=== PATIENT | female | born 1975 | race Caucasian/White ===

== ENCOUNTER → 2023-10-30 06:32 | Day surgery (SDC) | payer BC, SELFPAY ==
[2023-10-30 10:55] LABS: Glucose - Point of Care 98 mg/dl (70-99)
== END ==
LOC: GI 06:32
PROVIDERS: ATTENDING PHYSICIAN Internal Medicine
DX: Z12.11 Encounter for screening for malignant neoplasm of colon (principal); D12.7 Benign neoplasm of rectosigmoid junction; K62.1 Rectal polyp
CPT/HCPCS: 45385; 45380; 88305; 82962

== ENCOUNTER → 2023-12-27 17:24 | Outpatient (REF) | payer BC, SELFPAY ==
[2023-12-27 17:51] LABS: % Basophils 0.8 % (0-2); % Eosinophils 0.8 % (0-6); % Immature Granulocytes 0.2 % (0-0.5); % Monocytes 4.9 % (1.7-9.3); % Neutrophils 72.3 % (42.2-75.2); Absolute Basophils 0.1 10^3/uL (0-0.2); Absolute Eosinophils 0.1 10^3/uL (0-0.7); Absolute Monocytes 0.5 10^3/uL (0.1-0.6); Absolute Neutrophils 6.7 10^3/uL (1.4-6.5); Hematocrit 42.9 % (37.0-47.0); Hemoglobin 15.1 g/dL (12.0-16.0); Mean Corp Hgb Conc. 35.2 g/dL (33.0-37.0); Mean Corpuscular Hgb 29.7 pg (27.0-31.0); Mean Corpuscular Volume 84.3 fL (81.0-99.0); Mean Platelet Volume 9.3 fL (7.4-10.4); Nucleated Red Blood Cells % 0 %; Platelet Count 293 10^3/uL (130-400); Red Blood Cell Count 5.09 10^6/uL (4.20-5.40); Red Cell Dist. Width 12.2 % (11.5-14.5); White Blood Cell Count 9.3 10^3/uL (4.8-10.8)
[2023-12-27 18:07] LABS: ALT (SGPT) 15 U/L (0-35); AST (SGOT) 19 U/L (14-36); Albumin 4.7 g/dl (3.5-5.0); Alkaline Phosphatase 67 U/L (38-126); Blood Urea Nitrogen 8 mg/dl (7-17); Calcium 9.6 mg/dl (8.4-10.2); Carbon Dioxide 22 mmol/L (22-30); Chloride 106 mmol/L (98-107); Glucose 95 mg/dl (70-99); HDL Cholesterol 56 mg/dl; Iron 164 ug/dl (37-170); LDL Cholesterol, Calculated 146 mg/dl; Potassium 4.4 mmol/L (3.5-5.1); Sodium 139 mmol/L (135-145); Total Bilirubin 0.6 mg/dl (0.2-1.3); Total Cholesterol 227 mg/dl (50-199); Total Protein 7.6 g/dl (6.3-8.2); Triglyceride 125 mg/dl (10-149); Very Low Density Lipoprotein 25 mg/dl (0-30); eGFR > 60.00
[2023-12-27 18:17] LABS: Percent Saturation 42 % (20-50); Total Iron Binding Capacity 382 ug/dl (265-497)
[2023-12-27 18:23] LABS: Vitamin D, 25-OH*** 33.3 ng/mL (30-80)
[2023-12-27 18:41] LABS: Ferritin 58.2 ng/ml (6.24-137)
[2023-12-27 19:12] LABS: Folate 11.5 ng/ml (2.76-20); Vitamin B12 793 pg/ml (239-931)
[2023-12-28 12:05] LABS: Glycohemoglobin (HgbA1c) 5.6 % (4.0-5.6)
== END ==
LOC: REG 17:24
PROVIDERS: ATTENDING PHYSICIAN Clinical Nurse Specialist Family Health; FAMILY PHYSICIAN Internal Medicine
DX: Z00.00 Encounter for general adult medical examination without abnormal findings (principal)
CPT/HCPCS: 36415; 80053; 80061; 82306; 82607; 82728; 82746; 83036; 83540; 83550; 85025

== ENCOUNTER → 2024-02-21 12:32 | Outpatient (REF) | payer BC, SELFPAY | LOC: RAD 12:32 | PROVIDERS: ATTENDING PHYSICIAN Internal Medicine | DX: M54.12 Radiculopathy, cervical region (principal) | CPT/HCPCS: 72040 ==

== ENCOUNTER → 2024-05-01 19:33 | Outpatient (REF) | payer BC, SELFPAY | LOC: MRI 3T 19:33 | PROVIDERS: ATTENDING PHYSICIAN Internal Medicine | DX: M75.102 Unspecified rotator cuff tear or rupture of left shoulder, not specified as traumatic (principal); M54.12 Radiculopathy, cervical region | CPT/HCPCS: 72141; 73221 ==

== ENCOUNTER 2024-10-31 16:37 | Day surgery (SDC) | payer BC, SELFPAY ==
[2024-10-31 12:30] VITALS: BP 146/99
--- NOTE | 2024-10-31 13:10 | ED.GENMED ---
History of Present Illness
General
Chief Complaint: Abdominal Pain
Time Seen by Provider: 10/31/24 12:57
History of Present Illness
History of Present Illness:
49-year-old female with history of zsw-gdyqasn-njsqbudhy diabetes and GERD presents the emergency department for evaluation of intense upper abdominal pain associated with intractable vomiting for the past 3 days. Has been unable to tolerate
nxtt-wyt-tugfufz meds due to vomiting. Prior abdominal surgeries include x 1. She does note that she is on a GLP-1 for diabetes however has been on this for several years without issues and even reduced her dosage 1 week ago. No
hematemesis or melena.
Past History
Past History
ED Past Medical History: GERD and Other (Migraines); Negative Asthma, HTN, Hypercholesterolemia or NIDDM
ED Past Surgical History: (X1), Gynecological (11 breast surgery for reconstruction) and Other (Right anterior Thoracic outlet syndrome)
Social History
Tobacco: Non-smoker
Alcohol: None
Personal: Single
Living: with family
Employment: Employed
Review of Systems
Review of Systems
Allergies reviewed?: Yes
All Other Systems: ROS reviewed and negative except as documented in HPI and ROS
Phy Exam
Physical Exam
Physical Exam:
GEN: Ill-appearing, in visible pain, diaphoretic
HEENT: Oral mucosa moist, no scleral icterus
Cardiac: Regular rate
Lung: No respiratory distress, no tachypnea
Abdomen: Soft, significant epigastric and right upper quadrant tenderness
MSK: No gross deformity or injuries
Skin: Good color, no pallor or jaundice, no rashes
Neuro: AO x3, moves all extremities freely
Psych: Calm, cooperative
Course
Orders/Labs/Results
Orders:
Orders
10/31/24 13:09
HYDROmorphone [Dilaudid] 0.5 mg IV NOW STA
Ondansetron Injectable [Zofran] 4 mg IV NOW STA
US Abdomen Complete/Upper Urgent
Comment:
Reason For Exam: epigastric pain
10/31/24 13:10
Lactated Ringers [Lr] 1,000 ml IV BOLUS
10/31/24 13:17
Complete Blood Count/With Diff Urgent
Comprehensive Metabolic Panel Urgent
Lipase Urgent
10/31/24 14:54
Famotidine [Pepcid] 20 mg IV NOW STA
Sucralfate Suspension [Carafate Suspension] 1 gm PO NOW STA
10/31/24 15:40
HYDROmorphone [Dilaudid] 0.5 mg IV NOW STA
10/31/24 15:42
Admit/Transfer Patient As Directed
Co-Sign Provider:
Level of Care: Post Proc/Surg Recovery
Assign to:: Medical/Surgical
Physician / Group: Pellini/Gen surg
Diagnosis: Cholecystitis
Reason for Overnight Stay: Standard of Care
PRN Pain Medication Management As Directed
May give lesser potent ordered pain med per pt: Yes
preference::
Protocol:: Medication orders for pain may be administered in a
manner that supports deferring to patient preference
when the pt is:
- Requesting an ordered lesser potent pain medication.
Least to most potent pain medications are defined
as: acetaminophen < NSAID < tramadol < opioids
(morphine, oxycodone, hydromorphone).
- Requesting a lesser dose of the same medication IF
ORDERED.
- Requesting a less intrusive route of administration
if both routes are prescribed by the provider (PO <
IV).
10/31/24 15:43
Code Status As Directed
Resuscitation Status: Full Code
LevoFLOXacin 500 MG/100 ML [Levaquin] 500 mg in 100 ml IV NOW
MetroNIDAZOLE 500 MG/100 ML [Flagyl 500 mg] 100 ml IV NOW
10/31/24 15:50
ECG [Electrocardiogram (*1)] Routine
Reason for Study: QTc Monitoring
Prochlorperazine [Compazine] 5 mg IV NOW STA
11/01/24 06:00
ECG [Electrocardiogram (*1)] IN AM
Reason for Study: QTc Monitoring
11/01/24 08:00
Pantoprazole [Protonix] 40 mg PO DAILY
Abnormal Lab Results
10/31/24
13:17
Chloride 110 H mmol/L
(98-107)
Glucose 103 H mg/dl
(70-99)
10/31/24 13:17
10/31/24 13:17
Vital Signs
Initial and Last Documented VS:
Initial Vital Signs
Temp Pulse Resp BP Pulse Ox
97.6 F 86 16 146/99 99
10/31/24 12:30 10/31/24 12:30 10/31/24 12:30 10/31/24 12:30 10/31/24 12:30
Last Documented Vital Signs
Temp Pulse Resp BP Pulse Ox
97.6 F 86 16 146/99 99
10/31/24 12:30 10/31/24 12:30 10/31/24 12:30 10/31/24 12:30 10/31/24 12:30
MDM/Problems Addressed
MDM/Problems Addressed:
49-year-old female presenting with upper abdominal pain and vomiting workup reveals signs of acute cholecystitis on ultrasound. Case was reviewed with general surgery who will admit the patient to their service for operative intervention tomorrow.
Will administer IV antibiotics, Levaquin and Flagyl chosen due to allergy profile
*Critical Care Note
Total Time (30-74mins, 75-104mins- exclusive of procedures): Not Applicable
Update Note
Update Note:
10/31/2024 1454 PM: Patient reassessed complaining improved but still present pain. Reporting indigestion/reflux symptoms. Awaiting ultrasound report. Will give famotidine and Carafate
ED Attending Note
-
Portions of this chart may have been created with voice recognition software.� Occasional wrong word or��sound alike� substitutions may have occurred due to the inherent limitations of voice recognition software.
Discharge Plan
Departure
Patient Disposition: Admit
Date of Disposition: 10/31/24
Time of Disposition: 15:43
Admit to: Med/Surg
Presentation/result/management discussed w/ accepting MD/DO: Gen Surg
Discharge Problem:
Acute cholecystitis
Prescriptions:
No Action
alprazolam 1 MG tablet
1 mg PO PRN PRN (Reason: migrane)
esomeprazole magnesium [Nexium] 40 MG capsule,delayed release(DR/EC)
40 mg PO DAILY
Patient Comments:
pt vomited ~ 30min after taking
bwkbojf-qswmxnwvnaeqi-ptswjpwf 1 TABLET tablet
1 tab PO PRN PRN (Reason: migrane)
cetirizine 10 mg Tablet
10 mg PO DAILY
famotidine 20 mg Tablet
20 mg PO DAILYPRN PRN (Reason: stomache pain)
mometasone [Nasonex] 50 mcg/actuation [place],Non-Aerosol
1 spray INTRANASAL DAILY
norethindrone ac-eth estradiol [06/08 ()] 1-20 mg-mcg tablet
1 tab PO DAILY
Patient Comments:
taking for hormone replacement, not bc
gabapentin 100 mg capsule
200 mg PO TIDPRN PRN (Reason: migraine)
cyclobenzaprine 5 mg tablet
5 mg PO Q8HPRN PRN (Reason: shoulder pain)
Mounjaro 10 mg/0.5 mL pen injector
1 mg SC WEEKLY
Referrals:
Kellie Radford MD [Family Provider, Internal Medicine]
Interventions
Interventions:
*Risk Screen - Suicide Last Done: 10/31/24 12:30
*General Assessment Last Done: 10/31/24 12:30
*Neglect/Abuse Screening Last Done: 10/31/24 12:30
GI-Chixdu-Xyrauwlwia Assessment Last Done: 10/31/24 12:49
Discharge Date and Time
Print Language: GREENLANDIC
[2024-10-31] MEDS: LR 1000 IV (13:17)
[2024-10-31] MEDS: ZOFRAN 4 MG IV ×2 (13:18→22:32)
[2024-10-31] MEDS: DILAUDID 0.5 MG IV ×3 (13:18→22:32)
[2024-10-31 13:35] LABS: % Basophils 0.5 % (0-2); % Eosinophils 1.1 % (0-6); % Immature Granulocytes 0.3 % (0-0.5); % Lymphocytes 23.1 % (20.5-51.1); % Monocytes 5.9 % (1.7-9.3); % Neutrophils 69.1 % (42.2-75.2); Absolute Eosinophils 0.1 10^3/uL (0-0.7); Absolute Lymphocytes 1.7 10^3/uL (1.2-3.4); Absolute Monocytes 0.4 10^3/uL (0.1-0.6); Absolute Neutrophils 5.1 10^3/uL (1.4-6.5); Hematocrit 41.3 % (37.0-47.0); Hemoglobin 14.5 g/dL (12.0-16.0); Mean Corp Hgb Conc. 35.1 g/dL (33.0-37.0); Mean Corpuscular Hgb 28.8 pg (27.0-31.0); Mean Corpuscular Volume 82.1 fL (81.0-99.0); Mean Platelet Volume 9.4 fL (7.4-10.4); Nucleated Red Blood Cells % 0 %; Platelet Count 236 10^3/uL (130-400); Red Blood Cell Count 5.03 10^6/uL (4.20-5.40); Red Cell Dist. Width 12.3 % (11.5-14.5); White Blood Cell Count 7.4 10^3/uL (4.8-10.8)
[2024-10-31 14:05] LABS: ALT (SGPT) 21 U/L (0-35); AST (SGOT) 19 U/L (14-36); Albumin 4.6 g/dl (3.5-5.0); Alkaline Phosphatase 53 U/L (38-126); Blood Urea Nitrogen 9 mg/dl (7-17); Calcium 10.1 mg/dl (8.4-10.2); Carbon Dioxide 23 mmol/L (22-30); Chloride 110 mmol/L (98-107); Glucose 103 mg/dl (70-99); Lipase 139 U/L (23-300); Potassium 4.6 mmol/L (3.5-5.1); Sodium 142 mmol/L (135-145); Total Bilirubin 0.9 mg/dl (0.2-1.3); Total Protein 7.5 g/dl (6.3-8.2); eGFR > 60.00
[2024-10-31] MEDS: PEPCID 20 MG IV (15:05)
[2024-10-31] MEDS: CARAFATE SUSPENSION 1 GM PO (15:05)
--- NOTE | 2024-10-31 15:51 | HPS.HSE ---
Addendum entered and electronically signed by Fredy Prakash MD 11/01/24 07:41:
Patient seen and examined this a.m. Agree with documented history and physical.
HPI 49-year-old female with history of DM, intentional weight loss, GERD and prior history of gastric ulcers presenting with progressive intermittent epigastric pain radiating to the back with nausea and anorexia. This past Saturday her acute
episode resumed and has been rather persistent since exacerbated by any oral intake.
Ultrasound imaging confirms gallstones, gallbladder wall 3 mm with some enhancement, positive sonographic Clemens sign. No biliary ductal dilation.
Past abdominal surgical history only notable for .
AFVSS NAD AAO x 3
ABD: Soft, nondistended, tenderness to palpation epigastrium and to the right of midline. No rebound rigidity or guarding.
Laboratory testing reviewed and unremarkable including normal LFTs and lipase.
Assessment/plan: Reviewed with patient history and workup to date as outlined above which is consistent with symptomatic cholelithiasis/probable acute on chronic calculus cholecystitis.
In the setting of the degree of recurrent symptoms she has been experiencing we discussed the indications for cholecystectomy at this hospitalization which she is in agreement with.
Laparoscopic cholecystectomy was reviewed in detail including operative technique utilizing diagrams and alternative management options. The potential benefits and risks of the procedure were reviewed in detail, including but not limited to
infectious or wound healing complications, bleeding, bile leak, injury to biliary tree, iatrogenic injury to surrounding viscera. Reviewed the typical postoperative recovery.
Any of the patient's concerns or questions were fully addressed and informed consent was obtained.
Patient on OR schedule for today continue supportive care pending OR availability
Original Note:
Family Physician
-
Family Physician: Kellie Radford
Chief Complaint
-
Epigastric pain/nausea
History of Present Illness
Ms Gray is a 49 yo female with a h/o DM on Mounjaro, planned weight loss >30lbs over the past year and who presents through the ED with 4 days of epigastric pain radiating into her back and towards the right abdomen with nausea. She
notes that over the past year or so, she has had intermittent epigastric discomfort which although severe usually was short in duration and relieved by staying NPO for a period of time and taking Pepcid in addition to her daily nexium. She began
having this pain on Saturday very early in the morning after having a steak sandwich the previous night. She noted nausea and chills with low grade elevation in temperature but no true fever. She has been vomiting whenever she tries to eat so has
been mostly NPO since that time. These symptoms have persisted and she has been staying mostly in bed over the past few days due to pain and nausea and general fatigue. On exam, she has epigastric tenderness into the RUQ.
Medical History
Past Medical History
Past Medical History: Reports GERD, NIDDM and Other (right thoracic outlet syndrome, migraines)
Past Surgical History: Reports and Other (breast reconstruction x11, right anterior thoracic outlet decompression)
Social History
Tobacco: Non-smoker
Alcohol: None
Employment: Employed
Family History
Family History: Not pertinent
Allergies / Home Medications
Allergies reflects when Allergies were last updated in [facility].
Home Medications with original date entered in [facility]
Allergy/Medication List:
Patient Allergies
Allergy/AdvReac Type Severity Reaction Status Date / Time
fentanyl Allergy Severe angioedema Verified 10/31/24 16:24
Cephalosporins Allergy Unknown Verified 10/31/24 12:36
latex Allergy Rash Verified 10/31/24 12:36
meperidine (From Demerol) Allergy Unknown Verified 10/31/24 12:36
nitrofurantoin (From Allergy Unknown Verified 10/31/24 12:36
Macrobid)
Penicillins Allergy Unknown Verified 10/31/24 12:36
Sulfa (Sulfonamide Allergy Unknown Verified 10/31/24 12:36
Antibiotics)
sumatriptan (From Imitrex) Allergy Unknown Verified 10/31/24 12:36
Tetanus Vaccines and Toxoid Allergy Unknown Verified 10/31/24 12:36
�Medication �Instructions �Recorded �Confirmed �Type
alprazolam 1 mg tablet 1 mg PO PRN PRN migrane 08/05/20 10/31/24 History
wjcsesw-gdtzztmtbeykh-ieclvmem 250 1 tab PO PRN PRN migrane 08/05/20 10/31/24 History
mg-250 mg-65 mg tablet
esomeprazole magnesium 40 mg 40 mg PO DAILY 08/05/20 10/31/24 History
capsule,delayed release (Nexium)
cetirizine 10 mg tablet 10 mg PO DAILY 10/31/24 10/31/24 History
cyclobenzaprine 5 mg tablet 5 mg PO Q8HPRN PRN shoulder pain 10/31/24 10/31/24 History
famotidine 20 mg tablet 20 mg PO DAILYPRN PRN stomache pain 10/31/24 10/31/24 History
gabapentin 100 mg capsule 200 mg PO TIDPRN PRN migraine 10/31/24 10/31/24 History
mometasone 50 mcg/actuation nasal 1 spray intranasal DAILY 10/31/24 10/31/24 History
spray
norethindrone acetate 1 mg-ethinyl 1 tab PO DAILY 10/31/24 10/31/24 History
estradiol 20 mcg tablet (Junel)
tirzepatide 10 mg/0.5 mL 1 mg SC WEEKLY 10/31/24 10/31/24 History
subcutaneous pen injector
(Mounjaro)
Review of Systems
-
History Source: Patient
A 12 point ROS was completed and negative except as noted: Yes
Physical Exam
Vital Signs
Vital Signs
Temp Pulse Resp BP Pulse Ox
97.6 F 86 16 146/99 99
10/31/24 12:30 10/31/24 12:30 10/31/24 12:30 10/31/24 12:30 10/31/24 12:30
Physical Exam
General: Well Developed and Well Nourished; No Comfortable
HEENT: NormoCephalic and Moist mucous membranes
GI: Soft, Non Distended and Tender (epigastrium into RUQ)
Skin: Warm and Dry
Neuro: Awake, Alert and AO x 3
Psych: Calm
Laboratory Results
-
10/31/24 13:17
10/31/24 13:17
Laboratory Results
Total Bilirubin 0.9 mg/dl (0.2-1.3) 10/31/24 13:17
AST 19 U/L (14-36) 10/31/24 13:17
ALT 21 U/L (0-35) 10/31/24 13:17
Alkaline Phosphatase 53 U/L (38-126) 10/31/24 13:17
Lipase 139 U/L (23-300) 10/31/24 13:17
Data Reviewed
-
Ultrasound: Image Personally Visualized and interpreted, Report Reviewed by me, Discussed with Physician, Discussed with Patient and Discussed with Family
Lab Data: Labs Reviewed by me, Discussed with Physician and Discussed with Patient
Old Records: Reviewed
Impression/Plan
-
IMPRESSION:
49 yo female with h/o DM on mounjaro (LD one week ago) with prior likely with prior episodes of biliary colic over the past year who presents with epigastric pain radiating into her back and RUQ with associated tenderness on exam x4 days
with associated n/v. Symptoms not relieved with PPI, H2 or carafate. US imaging with positive clemens's sign as well as cholelithiasis with gallbladder wall thickening raising suspicion for acute cholecystitis.
PLAN:
Will admit overnight and start IV abx with levaquin/flagyl
NPO after MN for OR for lap jaspreet
Ok for clears if tolerated this evening
Analgesics/Antiemetics prn
Follow ECGs given use of multiple QT prolonging meds
IVF with NSS at 80ml/hr
Follow accuchecks, SSI if needed
SCDs for VTE ppx
[2024-10-31] MEDS: COMPAZINE 5 MG IV (16:03)
[2024-10-31] MEDS: FLAGYL 500 MG 100 IV (16:04)
[2024-10-31 17:01] LABS: HCG, Serum Qualitative Screen Negative
[2024-10-31 18:08] LABS: Glucose - Point of Care 76 mg/dl (70-99)
[2024-10-31 18:09] VITALS: BP 130/69
[2024-10-31] MEDS: NSS 1000 IV (18:14)
[2024-10-31] MEDS: LEVAQUIN 100 IV (20:23)
[2024-10-31 22:35] LABS: Glucose - Point of Care 115 mg/dl (70-99)
[2024-10-31 23:03] VITALS: BP 139/86
[2024-11-01] VITALS (11 sets, daily range): BP systolic 121–166; BP diastolic 62–100
[2024-11-01] MEDS: FLAGYL 500 MG 100 IV (00:09)
[2024-11-01] MEDS: TORADOL 10 MG IV (00:18)
[2024-11-01] MEDS: PROTONIX 40 MG PO (00:56)
[2024-11-01] MEDS: DILAUDID 0.5 MG IV ×2 (01:33→11:19)
[2024-11-01 05:57] LABS: Glucose - Point of Care 80 mg/dl (70-99)
[2024-11-01] MEDS: DEXTROSE 50% SYRINGE 12.5 GRAMS IV (06:13)
[2024-11-01 06:34] LABS: Glucose - Point of Care 164 mg/dl (70-99)
--- NOTE | 2024-11-01 06:35 | PTCARENOTE ---
Patient's blood glucose 80 at 0600 check. Patient stated she had a slight head ache and normally drops quickly when she is at this level. Roxana Thomson, [facility] notified of patient's concerns. One dose of dextrose ordered and administered.
After 15 minute check, bloody glucose at 164 and patient stated her headache had resolved . Patient prepped for surgery this morning.
--- NOTE | 2024-11-01 07:41 | W.SUR.PREOP ---
Pre-Operative Surgical Note
-
I have examined this patient prior to the performance of the scheduled procedure.
The patient's condition is unchanged from the time of the current History and
Physical and the patient is able to undergo the scheduled procedure.
[2024-11-01] MEDS: FLAGYL 500 MG IV (08:21)
--- NOTE | 2024-11-01 09:10 | W.IMMPOSTOP ---
Addendum entered and electronically signed by Fredy Prakash MD 11/01/24 09:47:
#[id number]
Original Note:
Surgical Immed Post Op Note
-
Primary Surgeon: Fredy Prakash MD
Assisting Surgeon: None
Pre-op Diagnosis: Symptomatic cholelithiasis/chronic calculus cholecystitis
Post-op Diagnosis: Symptomatic cholelithiasis/chronic calculus cholecystitis
Procedure Performed: Laparoscopic cholecystectomy
Anesthesia Type: GETA +0.25% Marcaine
Specimen / Cultures: gallbladder
Estimated Blood Loss: 6 mL
Complications: None immediate
Operative Findings: Physiologically distended gallbladder with chronic omental adhesions to gallbladder. Gallstones. Probable acute biliary colic with chronic calculus cholecystitis. Cystic duct and artery individually controlled with clips.
Gallbladder removed of liver intact and extracted at epigastric trocar site.
[2024-11-01] MEDS: ZOFRAN 4 MG IV ×2 (09:25→18:23)
[2024-11-01 09:33] LABS: Glucose - Point of Care 116 mg/dl (70-99)
[2024-11-01] MEDS: COMPAZINE 5 MG IV ×2 (09:37→20:17)
[2024-11-01] MEDS: PEPCID 20 MG IV (11:16)
[2024-11-01] MEDS: REGLAN 10 MG IV (11:17)
[2024-11-01] MEDS: PROTONIX PO (11:18)
--- NOTE | 2024-11-01 11:32 | CM ---
CM following re: discharge planning.
Reviewed pt's chart, met with pt.
Pt is a 49 year old female, admitted with SDC status and primary dx of POD#0 Laparoscopic cholecystectomy.
Pt reports she lives with mother and a brother 2SH, 2 steps to enter. 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
PCP: Kellie Radford
Pharmacy: [facility]
D/C plan: home with anticipated no needs.
CM will follow with discharge plan updates as needed.
[2024-11-01] MEDS: NSS 1000 IV (11:46)
[2024-11-01 11:50] LABS: Glucose - Point of Care 146 mg/dl (70-99)
[2024-11-01 13:38] LABS: Glucose - Point of Care 125 mg/dl (70-99)
[2024-11-01] MEDS: XANAX 1 MG PO (15:53)
[2024-11-01 16:59] LABS: Glucose - Point of Care 134 mg/dl (70-99)
[2024-11-01] MEDS: FIORICET 1 TAB PO (18:22)
[2024-11-01] MEDS: NORVASC 5 MG PO (20:17)
[2024-11-01] MEDS: DILAUDID 1 MG IV ×2 (20:24→23:27)
[2024-11-02 00:25] LABS: Glucose - Point of Care 127 mg/dl (70-99)
[2024-11-02] MEDS: NSS 1000 IV (00:40)
[2024-11-02] MEDS: TORADOL 10 MG IV ×2 (00:44→09:09)
[2024-11-02] MEDS: DILAUDID 1 MG IV (03:26)
[2024-11-02 06:31] LABS: Glucose - Point of Care 115 mg/dl (70-99)
[2024-11-02 08:15] VITALS: BP 127/86
[2024-11-02] MEDS: ZYRTEC 10 MG PO (09:12)
[2024-11-02] MEDS: PROTONIX 40 MG PO (09:12)
[2024-11-02] MEDS: TYLENOL 650 MG PO (09:13)
--- NOTE | 2024-11-02 09:26 | W.PN.GS2 ---
Today's Communication / Plan
-
Dispo planning
Assessment / Plan
-
This is a 49-year-old female status post laparoscopic cholecystectomy for chronic cholecystitis. Doing well, expected postoperative course.
Will DC home today.
Time Spent
Total Time Spent with Patient (in minutes): 20
Subjective Data
-
Date of Service: November 02, 2024
Interval Events:
No acute events overnight. Slept well. Pain Controlled. Denies Nausea/Vomiting. Tolerating diet.
Objective Data
-
Intake and Output
11/01/24 11/02/24 11/03/24
06:59 06:59 06:59
Intake Total 360 / 360 2620 / 2620
Balance 360 / 360 2620 / 2620
Intake:
Oral fluids 360 / 360 720 / 720
IV fluids (Total) 1900 / 1900
normsool 300 / 300
Other:
Number of approximated MODERATE 4
amounts of urine
Number of approximated LARGE 3
amounts of urine
Vital Signs
Temp Pulse Resp BP Pulse Ox
99.1 F 83 16 127/86 97
11/02/24 08:15 11/02/24 08:15 11/02/24 08:15 11/02/24 08:15 11/02/24 08:15
Lab Results
10/31/24 13:17
10/31/24 13:17
Calcium 10.1 mg/dl (8.4-10.2) 10/31/24 13:17
Total Bilirubin 0.9 mg/dl (0.2-1.3) 10/31/24 13:17
AST 19 U/L (14-36) 10/31/24 13:17
ALT 21 U/L (0-35) 10/31/24 13:17
Alkaline Phosphatase 53 U/L (38-126) 10/31/24 13:17
Total Protein 7.5 g/dl (6.3-8.2) 10/31/24 13:17
Albumin 4.6 g/dl (3.5-5.0) 10/31/24 13:17
Physical Exam
-
GENERAL/NEURO: Awake, Alert, no distress
CHEST: Unlabored breathing on RA
ABDOMEN: Soft, Non-Tender, Non-Distended, incisions clean dry and intact.
Patient has a [place] catheter: No
Patient has a central line: No
[2024-11-02] MEDS: NSS IV (09:47)
--- NOTE | 2024-11-02 10:37 | CM ---
CM reviewed chart and noted dc order. Bedside meeting with pt, no dc needs noted, observed indep in room, cousin to transport.
Plan: DC home, no needs
== END 2024-11-02 11:58 | disposition home or self-care (01) ==
LOC: SDS 16:37
PROVIDERS: Physician Assistant; ATTENDING PHYSICIAN Surgery; EMERGENCY PHYSICIAN Emergency Medicine; FAMILY PHYSICIAN Internal Medicine
DX: K80.10 Calculus of gallbladder with chronic cholecystitis without obstruction (principal)
CPT/HCPCS: 47562; 88304; 76700; 80053; 82962; 83690; 84703; 85025; 93005; 96361; 96365; 96375; 96376; 99284

== ENCOUNTER 2024-11-27 19:54 | Emergency (ER) | payer BC, SELFPAY ==
[2024-11-27 20:00] VITALS: BP 144/107
--- NOTE | 2024-11-27 20:20 | ED.GENMED ---
History of Present Illness
General
Chief Complaint: Abdominal Pain
Source: patient
Exam Limitations: none
Time Seen by Provider: 11/27/24 20:02
History of Present Illness
History of Present Illness:
See MDM
Past History
Past History
ED Past Medical History: GERD and Other (Migraines); Negative Asthma, HTN, Hypercholesterolemia or NIDDM
ED Past Surgical History: (X1), Gynecological (11 breast surgery for reconstruction) and Other (Right anterior Thoracic outlet syndrome)
Social History
Tobacco: Non-smoker
Alcohol: None
Personal: Single
Living: with family
Employment: Employed
Phy Exam
Physical Exam
Physical Exam:
See MDM
Course
Orders/Labs/Results
Orders:
Orders
11/27/24 20:19
CT Abd/pel W Iv And Oral Contr Urgent
Comment:
Reason For Exam: recent GB surgery, upper abd pain
0.9% Sodium Chloride 1000 ml [Nss] 1,000 ml IV BOLUS
HYDROmorphone [Dilaudid] 0.5 mg IV NOW STA
Iohexol [Omnipaque] See Protocol PO NOW STA
Prochlorperazine [Compazine] 10 mg IV NOW STA
11/27/24 20:26
Complete Blood Count/With Diff Urgent
Comprehensive Metabolic Panel Urgent
HCG, Serum Qualitative Screen Urgent
Comment: ADD ON
Lipase Urgent
PTT Urgent
Prothrombin Time Urgent
11/27/24 20:59
MR Mrcp Without Urgent
Comment:
Reason For Exam: RUQ pain, recent cholecystectomy
Recent pill cam endoscopy?: No
11/27/24 22:16
Add On- LAB Urgent
Tests Added?: HCG qual
11/27/24 20:26
11/27/24 20:26
Vital Signs
Initial and Last Documented VS:
Initial Vital Signs
Temp Pulse Resp BP Pulse Ox
97.6 F 79 20 144/107 99
11/27/24 20:00 11/27/24 20:00 11/27/24 20:00 11/27/24 20:00 11/27/24 20:00
Last Documented Vital Signs
Temp Pulse Resp BP Pulse Ox
97.6 F 73 16 127/75 98
11/27/24 20:00 11/27/24 21:00 11/27/24 21:00 11/27/24 21:00 11/27/24 21:00
MDM/Problems Addressed
Differential Diagnosis Includes:
HPI and MDM Narrative:
49-year-old female presenting for evaluation of upper abdominal pain. This has been ongoing for the past several weeks ever since she had laparoscopic cholecystectomy. Patient has been dealing with intermittent pain that is worse with any sort of
food intake or water intake. She states it feels different from prior history of gastric ulcers. She denies any rectal bleeding. She does have a history of kidney stones as well but states this also feels different. Zofran is not helping the
nausea. Patient also complained of intermittent fevers
On exam, patient has tenderness to the epigastric region overlying one of the incision sites. However, the incision sites are clean and intact. No palpable hernia. Will obtain CT will give any evidence of biliary leak or free air or pancreatitis.
Will give dose of Compazine since Zofran not helping and will give dose of Dilaudid
Physical exam
General: Mildly uncomfortable
HEENT: protecting airway. Dry mucous membranes
Neck: appears supple
CV: No evidence of cyanosis
Resp: No accessory muscle use
Abd: Non-distended. No palpable hernia. Epigastric tenderness. No rebound
Extremities: No deformities
Neuro: alert
Psych: Normal affect
Skin: Intact
Problems Addressed including Acute and Chronic Conditions affecting care:
1. Postsurgical abdominal pain
Acuity: acute
Prognosis: stable
Details: Will obtain CT looking for evidence of biliary leak or pancreatitis or free air
Updates
9 PM patient in contact with her surgical team who is recommending MRCP. Case discussed with MRI who are still here. Will obtain stat MRI
MRCP negative. Will obtain CT
CT negative. Patient is feeling better after IV fluids and pain medicine. Will restart Carafate
Differential Diagnosis (but not limited to): Biliary leak, biliary abscess, free air, peptic ulcer disease, pancreatitis
Testing considered: Abdominal ultrasound
Drug therapy (if applicable): OTC meds, please see d/c instruction regarding Rx drugs
Amount and/or Complexity of Data Reviewed
Clinical info obtained from: Patient
External data reviewed: Recent laparoscopic cholecystectomy few weeks ago
Labs I independently reviewed (but not limited to): White blood cell count normal
Radiology: The CT scan was personally and independently reviewed. In addition, official CT report reviewed.
Pulse Ox: not hypoxic
EKG independently reviewed: N/A
Dealer Sales Manager: N/A
Critical Care: N/A
Risk of Complication:
Social Determinants of health: Good social support
Discussed with other providers: N/A
Escalation of Care includes Admit/Obs: After being observed in the Emergency Department, pt stable for discharge.
Occasional wrong word or 'sound a like' substitutions may have occurred due to the inherent limitations of voice recognition software. Read the chart carefully and recognize, using context, where substitutions have occurred.
*Pulse Oximetry
SaO2: 99
Oxygen Mode of Delivery: Room air
Patient hypoxic: no
*Critical Care Note
Total Time (30-74mins, 75-104mins- exclusive of procedures): Not Applicable
ED Attending Note
-
Portions of this chart may have been created with voice recognition software.� Occasional wrong word or��sound alike� substitutions may have occurred due to the inherent limitations of voice recognition software.
Discharge Plan
Departure
Patient Disposition: Home (Routine Discharge)
Date of Disposition: 11/28/24
Time of Disposition: 00:23
Patient with high blood pressure during this ER visit?: No
Discharge Problem:
Abdominal pain
Prescriptions:
New
ondansetron HCl 4 mg tablet
4 mg PO Q8H PRN (Reason: nausea and vomiting) Qty: 20 0RF
sucralfate [Carafate] 1 gram tablet
1 g PO TID 28 Days Qty: 84 0RF
No Action
alprazolam 1 MG tablet
1 mg PO PRN PRN (Reason: migrane)
esomeprazole magnesium [Nexium] 40 MG capsule,delayed release(DR/EC)
40 mg PO DAILY
Patient Comments:
pt vomited ~ 30min after taking
gdtrcyy-rkzlcjuoimgqg-caaydgot 1 TABLET tablet
1 tab PO PRN PRN (Reason: migrane)
cetirizine 10 mg Tablet
10 mg PO DAILY
famotidine 20 mg Tablet
20 mg PO DAILYPRN PRN (Reason: stomache pain)
mometasone 50 mcg/actuation [place],Non-Aerosol
1 spray INTRANASAL DAILY
norethindrone ac-eth estradiol [06/08 ()] 1-20 mg-mcg tablet
1 tab PO DAILY
Patient Comments:
taking for hormone replacement, not bc
gabapentin 100 mg capsule
200 mg PO TIDPRN PRN (Reason: migraine)
cyclobenzaprine 5 mg tablet
5 mg PO Q8HPRN PRN (Reason: shoulder pain)
Mounjaro 10 mg/0.5 mL pen injector
1 mg SC WEEKLY
acetaminophen [Tylenol Extra Strength] 500 mg tablet
1,000 mg PO Q6HPRN PRN (Reason: mild pain) Qty: 1 0RF
polyethylene glycol 3350 [Miralax] 17 gram/dose powder
4 g PO DAILY PRN (Reason: Constipation) Qty: 119 0RF
Rx Instructions:
start a laxative such as MIRALAX on day 2 after surgery if no bowel movement yet as long as no nausea/vomiting and passing gas
oxycodone 5 mg tablet
5 mg PO Q4HPRN PRN (Reason: breakthrough/severe pain) Qty: 7 0RF
ketorolac 10 mg tablet
10 mg PO Q8H 4 Days Qty: 12 0RF
Referrals:
Kellie Radford MD [Family Provider, Internal Medicine]
Activity Restrictions/Additional Instructions:
Please return for worsening symptoms
Interventions
Interventions:
*Risk Screen - Suicide Last Done: 11/27/24 20:46
*General Assessment Last Done: 11/27/24 20:46
*Neglect/Abuse Screening Last Done: 11/27/24 20:46
*ED- Fall Risk Assessment Last Done: 11/27/24 20:46
*ED COVID-19 Vaccine History Last Done: 11/27/24 20:46
YC-Jjosyi-Guatyvxecy Assessment Last Done: 11/27/24 20:51
Discharge Date and Time
Print Language: DOMINICAN
[2024-11-27 20:34] LABS: Hematocrit 42.5 % (37.0-47.0); Hemoglobin 14.8 g/dL (12.0-16.0); Mean Corp Hgb Conc. 34.8 g/dL (33.0-37.0); Mean Corpuscular Volume 83.5 fL (81.0-99.0); Nucleated Red Blood Cells % 0 %; Platelet Count 297 10^3/uL (130-400); Red Cell Dist. Width 13.2 % (11.5-14.5)
[2024-11-27] MEDS: COMPAZINE 10 MG IV (20:35)
[2024-11-27] MEDS: DILAUDID 0.5 MG IV (20:36)
[2024-11-27] MEDS: NSS 1000 IV (20:36)
[2024-11-27 20:42] LABS: INR 1.08; PT 14.3 Sec (11.4-14.6)
[2024-11-27 20:43] LABS: APTT 29.9 Sec (23.4-35.0)
[2024-11-27 20:46] VITALS: BMI 25.3
[2024-11-27 20:50] VITALS: BP 127/68
--- NOTE | 2024-11-27 20:53 | EDRN ---
Dr. Marte in room w/pt at this time. Pt has not started drinking for CT as of yet, awaiting to see if pt will get CT, talking w/Dr. Marte at this time.
[2024-11-27 21:00] VITALS: BP 127/75
--- NOTE | 2024-11-27 21:03 | EDRN ---
CT oral contrast on hold until pt returns from MRI per Dr. Marte.
[2024-11-27 21:04] LABS: ALT (SGPT) 23 U/L (0-35); AST (SGOT) 20 U/L (14-36); Albumin 4.6 g/dl (3.5-5.0); Alkaline Phosphatase 87 U/L (38-126); Blood Urea Nitrogen 8 mg/dl (7-17); Calcium 9.6 mg/dl (8.4-10.2); Carbon Dioxide 27 mmol/L (22-30); Chloride 106 mmol/L (98-107); Estimated Creatinine Clearance 87 ml/min; Glucose 89 mg/dl (70-99); Lipase 159 U/L (23-300); Potassium 4.2 mmol/L (3.5-5.1); Sodium 139 mmol/L (135-145); Total Protein 7.5 g/dl (6.3-8.2); eGFR > 60.00
[2024-11-27] MEDS: OMNIPAQUE 50 ML PO (21:50)
[2024-11-27 22:44] LABS: HCG, Serum Qualitative Screen Negative
== END 2024-11-28 00:33 | disposition home or self-care (01) ==
LOC: EMR 19:54
PROVIDERS: EMERGENCY PHYSICIAN Student in an Organized Health Care Education/Training Program; FAMILY PHYSICIAN Internal Medicine
DX: R10.13 Epigastric pain (principal); K21.9 Gastro-esophageal reflux disease without esophagitis; G43.909 Migraine, unspecified, not intractable, without status migrainosus; G54.0 Brachial plexus disorders; Z98.890 Other specified postprocedural states; Z90.49 Acquired absence of other specified parts of digestive tract; Z87.11 Personal history of peptic ulcer disease; Z87.442 Personal history of urinary calculi; Z88.5 Allergy status to narcotic agent; Z88.0 Allergy status to penicillin; Z88.2 Allergy status to sulfonamides; Z88.7 Allergy status to serum and vaccine; Z88.8 Allergy status to other drugs, medicaments and biological substances; Z88.3 Allergy status to other anti-infective agents; Z91.040 Latex allergy status
CPT/HCPCS: 99285; 96375; 96361; 96374; 74177; 74181; 80053; 83690; 84703; 85025; 85610; 85730; Q9967